=== PATIENT | female | born 1975 | race Caucasian/White ===

== ENCOUNTER → 2017-06-09 | Outpatient (CLI) | payer BC | END | disposition home or self-care (01) | LOC: CFH 10:29 | DX: Z12.31 Encounter for screening mammogram for malignant neoplasm of breast (principal) | CPT/HCPCS: 77063; 77067 ==

== ENCOUNTER → 2017-06-24 | Outpatient (CLI) | payer BC | END | disposition home or self-care (01) | LOC: CFH 14:15 | DX: N60.02 Solitary cyst of left breast (principal) | CPT/HCPCS: 77065 ==

== ENCOUNTER → 2019-07-11 | Outpatient (CLI) | payer OTHER | END | disposition home or self-care (01) | LOC: CFH 15:17 | PROVIDERS: ATTEND Obstetrics & Gynecology | DX: Z12.31 Encounter for screening mammogram for malignant neoplasm of breast (principal) | CPT/HCPCS: 77063; 77067 ==

== ENCOUNTER → 2019-11-21 | Outpatient (CLI) | payer OTHER ==
[2019-11-21 14:20] LABS: BASOPHILS # (AUTO) 0.01 x10^3/uL (0-0.1); BASOPHILS % (AUTO) 0 % (0-1); EOSINOPHILS % (AUTO) 3 % (1-7); LYMPHOCYTES # (AUTO) 2.28 x10^3/uL (1-3.4); LYMPHOCYTES % (AUTO) 31 % (22-44); MD NO; MEAN CORPUSCULAR HEMOGLOBIN 32.2 pg (27.0-34.8); MEAN CORPUSCULAR HGB CONC 33.1 g/dL (32.4-35.8); MEAN CORPUSCULAR VOLUME 97.3 fL (80-100); MEAN PLATELET VOLUME 6.9 fL (7.4-10.4); MONOCYTES # (AUTO) 0.57 x10^3/uL (0.2-0.8); MONOCYTES % (AUTO) 8 % (2-9); NEUTROPHILS # (AUTO) 4.28 x10^3/uL (1.8-6.8); NEUTROPHILS % (AUTO) 58 % (42-75); PLATELET COUNT 282 x10^3/uL (130-400); RED BLOOD COUNT 3.97 x10^6/uL (3.82-5.3); RED CELL DISTRIBUTION WIDTH 12.4 % (9.6-15.2)
[2019-11-21 14:29] LABS: MICROSCOPIC AUTO
[2019-11-21 14:32] LABS: INTERNATIONAL NORMALIZED RATIO 0.93 (0.93-1.1); PROTHROMBIN TIME 9.8 Seconds (9.6-11.5)
[2019-11-21 14:36] LABS: ALANINE AMINOTRANSFERASE 16 U/L (12-78); ALBUMIN 3.9 g/dL (3.4-5.0); ANION GAP 6 mmol/L (5-15); CALCIUM 8.9 mg/dL (8.5-10.1); CHLORIDE 106 mmol/L (98-107); CREATININE 0.72 mg/dL (0.55-1.02)
[2019-11-21 14:38] LABS: ALKALINE PHOSPHATASE 65 U/L (45-117); BILIRUBIN,TOTAL 0.3 mg/dL (0.2-1.0); TOTAL PROTEIN 7.9 g/dL (6.4-8.2)
== END | disposition home or self-care (01) ==
LOC: STAR 13:12
PROVIDERS: ATTEND Orthopaedic Surgery Orthopaedic Surgery of the Spine
DX: Z01.818 Encounter for other preprocedural examination (principal); M54.2 Cervicalgia
CPT/HCPCS: 36415; 71046; 80053; 81001; 85025; 85610; 85730; 93005

== ENCOUNTER 2019-11-29 05:26 | Observation (INO) | payer OTHER ==
[~2019-11-29] VITALS: Ht 157.5 cm; Wt 71.0 kg
[2019-11-29] MEDS ORDERED: LACTATED RINGERS 1,000 ML IV SCH (05:51)
[2019-11-29] MEDS ORDERED: CHLORHEXIDINE 15 ML UDC MM ONE (06:00)
[2019-11-29 06:06] VITALS: BP 113/82
[2019-11-29 06:27] LABS: HCG UR SG 1.024 (1.003-1.030)
[2019-11-29] MEDS ORDERED: VANCOMYCIN 1,000 MG ONE (06:42)
[2019-11-29] MEDS ORDERED: LIDOCAINE/PF 0.5% ,50ML ONE (06:42)
[2019-11-29] MEDS ORDERED: EPINEPHRINE 1 MG/ML, 1ML ONE (06:42)
[2019-11-29] MEDS ORDERED: BUPIVACAINE/PF-EPI 0.25% 1:200K ONE (06:42)
[2019-11-29] MEDS ORDERED: MAGNESIUM SULFATE 1 GM/2 ML ONE (07:04)
[2019-11-29] MEDS ORDERED: LIDOCAINE 1%, 20ML ONE (07:04)
[2019-11-29] MEDS ORDERED: LABETALOL 5MG/ML, 20ML ONE (07:04)
[2019-11-29] MEDS ORDERED: ROCURONIUM 10MG/ML,5ML ONE (07:07)
[2019-11-29] MEDS ORDERED: DEXAMETHASONE 4 MG/ML, 1ML ONE (07:07)
[2019-11-29] MEDS ORDERED: PROPOFOL 10 MG/ML, 20ML ONE (07:07)
[2019-11-29] MEDS ORDERED: GLYCOPYRROLATE 0.2MG/1ML, 5ML ONE (07:07)
[2019-11-29] MEDS ORDERED: LIDOCAINE-MPF 2% ,5ML ONE (07:07)
[2019-11-29] MEDS ORDERED: MIDAZOLAM 1 MG/ML, 2ML ONE (07:07)
[2019-11-29] MEDS ORDERED: FENTANYL PF 250 MCG/5ML ONE (07:08)
[2019-11-29] MEDS ORDERED: SCOPOLAMINE 1MG PATCH TD ONE (07:17)
[2019-11-29] MEDS ORDERED: SCOPOLAMINE 1MG PATCH TD SCH (07:30)
[2019-11-29] MEDS ORDERED: CEFAZOLIN 1,000 MG ONE (07:47)
[2019-11-29] MEDS ORDERED: OXYcodone 5 MG/5 ML ORAL.SOL UDC PO PRN (08:00)
[2019-11-29] MEDS ORDERED: ACETAMINOPHEN 325 MG TABLET PO PRN (08:00)
[2019-11-29] MEDS ORDERED: EPHEDRINE 50 MG/ML, 1ML IM PRN (08:00)
[2019-11-29] MEDS ORDERED: EPHEDRINE 50 MG/ML, 1ML IVPush PRN (08:00)
[2019-11-29] MEDS ORDERED: KETOROLAC 30 MG/1 ML IVPush PRN (08:00)
[2019-11-29] MEDS ORDERED: HYDROmorphone 1 MG/ML, 1ML INJ IVPush PRN (08:00)
[2019-11-29] MEDS ORDERED: LABETALOL 5MG/ML, 20ML IV PRN (08:00)
[2019-11-29] MEDS ORDERED: METOCLOPRAMIDE 5 MG/ML, 2ML IVPush PRN (08:00)
[2019-11-29] MEDS ORDERED: LORazepam 2 MG/ML, 1ML IVPush PRN (08:00)
[2019-11-29] MEDS ORDERED: MIDAZOLAM 1 MG/ML, 2ML IV PRN (08:00)
[2019-11-29] MEDS ORDERED: ONDANSETRON 2MG/ML, 2ML IVPush PRN ×2 (08:00→11:30)
[2019-11-29] MEDS ORDERED: DIAZEPAM 5 MG/ML, 2ML IVPush PRN (08:00)
[2019-11-29] MEDS ORDERED: HYDROcodone/APAP 7.5-325MG/15ML UDC PO PRN (08:00)
[2019-11-29] MEDS ORDERED: MEPERIDINE/PF 25MG/0.5ML IVPush PRN (08:00)
[2019-11-29] MEDS ORDERED: METHOCARBAMOL 1,000 MG in DEXTROSE 5% 100 ML IV PRN (08:00)
[2019-11-29] MEDS ORDERED: hydrALAzine 20 MG/ML, 1ML IV PRN (08:00)
[2019-11-29] MEDS ORDERED: HALOPERIDOL 5 MG/ML IV PRN (08:00)
[2019-11-29] MEDS ORDERED: ALBUTEROL/IPRATROPIUM 2.5MG/0.5MG, 3 ML NPPB PRN (08:00)
[2019-11-29] MEDS ORDERED: DIPHENHYDRAMINE 50 MG/ML, 1ML IVPush PRN ×2 (08:00→11:30)
[2019-11-29] MEDS ORDERED: BUPIVACAINE/PF-EPI 0.5% 1:200K INFIL ONE (09:26)
[2019-11-29] MEDS ORDERED: FENTANYL PF 100 MCG/2ML ONE ×2 (09:52→10:11)
[2019-11-29] MEDS: FENTANYL PF 100 MCG/2ML IV PRN ×4 (09:56→10:33)
[2019-11-29] MEDS ORDERED: KETOROLAC 30 MG/1 ML ONE (10:11)
[2019-11-29] MEDS ORDERED: ACETAMINOPHEN 650 MG/20.3 ML UDC ONE (10:17)
[2019-11-29] MEDS ORDERED: OXYcodone 5 MG/5 ML ORAL.SOL UDC ONE (10:17)
[2019-11-29] MEDS ORDERED: HYDROcodone/APAP 10/325 MG TABLET PO PRN ×2 (11:30→14:00)
[2019-11-29] MEDS ORDERED: SENNA/DOCUSATE TABLET PO PRN (11:30)
[2019-11-29] MEDS ORDERED: BISACODYL 10 MG SUPP PR PRN ×2 (11:30→14:00)
[2019-11-29] MEDS ORDERED: PHARMACY MAY ADJ FOR RENAL FX MC PRN (11:30)
[2019-11-29] MEDS ORDERED: PROMETHAZINE 25 MG/ML, 1ML IM PRN ×2 (11:30→14:00)
[2019-11-29] MEDS ORDERED: MAGNESIUM HYDROXIDE 8%, 30ML UDC PO PRN ×2 (11:30→14:00)
[2019-11-29] MEDS ORDERED: DIPHENHYDRAMINE 50 MG/ML, 1ML IM PRN (11:30)
[2019-11-29] MEDS ORDERED: DIPHENHYDRAMINE 50 MG CAPSULE PO PRN (11:30)
[2019-11-29 13:30] VITALS: BP 104/70
[2019-11-29] MEDS ORDERED: HYDROcodone/APAP 5/325 TABLET PO PRN (14:00)
[2019-11-29] MEDS ORDERED: ONDANSETRON 2MG/ML, 2ML IV PRN (14:00)
[2019-11-29] MEDS ORDERED: METHOCARBAMOL 750 MG TABLET PO PRN (14:00)
[2019-11-29] MEDS: HYDROcodone/APAP 5/325 TABLET PO PRN ×3 (14:13→22:26)
[2019-11-29] MEDS ORDERED: SODIUM CHLORIDE 0.9% 1,000ML IV PRN (15:00)
[2019-11-29] MEDS ORDERED: CEFAZOLIN PMX 1GM/50ML 50 ML IVPB SCH (16:00)
[2019-11-29] MEDS: CEFAZOLIN PMX 1GM/50ML 50 ML IVPB SCH (16:15)
[2019-11-29] MEDS: D5%-0.9% NACL+KCL 20MEQ 1,000 ML IV SCH (16:54)
[2019-11-29 19:57] VITALS: BP 102/65
[2019-11-29] MEDS: SENNA/DOCUSATE TABLET PO SCH (20:37)
[2019-11-29] MEDS: SODIUM CHLORIDE FLUSH 10ML SYR IVF SCH (20:38)
[2019-11-29] MEDS ORDERED: METHOCARBAMOL 750 MG TABLET PO SCH (21:00)
[2019-11-29 23:32] VITALS: BP 101/66
[2019-11-30] MEDS: CEFAZOLIN PMX 1GM/50ML 50 ML IVPB SCH (00:02)
[2019-11-30] MEDS: D5%-0.9% NACL+KCL 20MEQ 1,000 ML IV SCH ×3 (01:00→21:00)
[2019-11-30] MEDS: HYDROcodone/APAP 5/325 TABLET PO PRN ×6 (02:37→22:39)
[2019-11-30 03:56] VITALS: BP 102/75
[2019-11-30 05:15] LABS: BASOPHILS # (AUTO) 0.04 x10^3/uL (0-0.1); BASOPHILS % (AUTO) 0 % (0-1); EOSINOPHILS # (AUTO) 0.06 x10^3/uL (0-0.4); EOSINOPHILS % (AUTO) 1 % (1-7); LYMPHOCYTES # (AUTO) 3.09 x10^3/uL (1-3.4); LYMPHOCYTES % (AUTO) 25 % (22-44); MD NO; MEAN CORPUSCULAR HEMOGLOBIN 32.7 pg (27.0-34.8); MEAN CORPUSCULAR HGB CONC 33.4 g/dL (32.4-35.8); MEAN PLATELET VOLUME 7.4 fL (7.4-10.4); MONOCYTES # (AUTO) 0.96 x10^3/uL (0.2-0.8); MONOCYTES % (AUTO) 8 % (2-9); NEUTROPHILS # (AUTO) 8.09 x10^3/uL (1.8-6.8); NEUTROPHILS % (AUTO) 66 % (42-75); PLATELET COUNT 245 x10^3/uL (130-400); RED BLOOD COUNT 3.24 x10^6/uL (3.82-5.3); RED CELL DISTRIBUTION WIDTH 12.3 % (9.6-15.2)
[2019-11-30 05:23] LABS: ANION GAP 6 mmol/L (5-15); CALCIUM 8.2 mg/dL (8.5-10.1); CHLORIDE 110 mmol/L (98-107); CREATININE 0.71 mg/dL (0.55-1.02)
[2019-11-30 06:59] VITALS: BP 107/66
[2019-11-30] MEDS: SENNA/DOCUSATE TABLET PO SCH ×2 (08:54→22:39)
[2019-11-30] MEDS: SODIUM CHLORIDE FLUSH 10ML SYR IVF SCH ×2 (08:55→22:39)
[2019-11-30] MEDS: METHOCARBAMOL 750 MG TABLET PO PRN ×2 (10:37→18:32)
[2019-11-30 12:31] VITALS: BP 119/77
[2019-11-30 20:15] VITALS: BP 109/72
[2019-12-01 01:33] VITALS: BP 111/74
[2019-12-01] MEDS: HYDROcodone/APAP 5/325 TABLET PO PRN ×3 (02:46→11:06)
[2019-12-01 05:59] LABS: BASOPHILS # (AUTO) 0.05 x10^3/uL (0-0.1); BASOPHILS % (AUTO) 1 % (0-1); EOSINOPHILS # (AUTO) 0.34 x10^3/uL (0-0.4); EOSINOPHILS % (AUTO) 4 % (1-7); LYMPHOCYTES # (AUTO) 3.28 x10^3/uL (1-3.4); LYMPHOCYTES % (AUTO) 40 % (22-44); MD NO; MEAN CORPUSCULAR HEMOGLOBIN 32.7 pg (27.0-34.8); MEAN CORPUSCULAR HGB CONC 33.2 g/dL (32.4-35.8); MEAN CORPUSCULAR VOLUME 98.4 fL (80-100); MEAN PLATELET VOLUME 7.4 fL (7.4-10.4); MONOCYTES # (AUTO) 0.66 x10^3/uL (0.2-0.8); MONOCYTES % (AUTO) 8 % (2-9); NEUTROPHILS # (AUTO) 3.89 x10^3/uL (1.8-6.8); NEUTROPHILS % (AUTO) 47 % (42-75); PLATELET COUNT 269 x10^3/uL (130-400); RED BLOOD COUNT 3.36 x10^6/uL (3.82-5.3); RED CELL DISTRIBUTION WIDTH 12.1 % (9.6-15.2)
[2019-12-01 06:07] LABS: ANION GAP 5 mmol/L (5-15); CALCIUM 8.4 mg/dL (8.5-10.1); CHLORIDE 108 mmol/L (98-107); CREATININE 0.65 mg/dL (0.55-1.02)
[2019-12-01] MEDS: D5%-0.9% NACL+KCL 20MEQ 1,000 ML IV SCH ×2 (06:12→07:17)
[2019-12-01 07:40] VITALS: BP 113/75
[2019-12-01] MEDS: SENNA/DOCUSATE TABLET PO SCH (08:43)
[2019-12-01] MEDS: SODIUM CHLORIDE FLUSH 10ML SYR IVF SCH (08:44)
[2019-12-01] MEDS ORDERED: METH750T87 PO (11:39)
[2019-12-01] MEDS ORDERED: HYDR-3246 PO (11:39)
[2019-12-01 13:06] VITALS: BP 107/73
== END 2019-12-01 14:49 | disposition home or self-care (01) ==
LOC: ORIP 05:26 → INTOOBSV 05:26 → ORIP 09:20 → 4NE 13:25 → DCLOUNGE 12-01 14:40
PROVIDERS: ADMIT Orthopaedic Surgery Orthopaedic Surgery of the Spine; ATTEND Orthopaedic Surgery Orthopaedic Surgery of the Spine
DX: Z03.818 Encounter for observation for suspected exposure to other biological agents ruled out (principal); M96.89 Other intraoperative and postprocedural complications and disorders of the musculoskeletal system; R13.10 Dysphagia, unspecified; Y83.8 Other surgical procedures as the cause of abnormal reaction of the patient, or of later complication, without mention of misadventure at the time of the procedure
CPT/HCPCS: 20680; 36415; 72040; 80048; 81025; 85025; 87635; 95938; 95941; 96365; 96366; G0378; J0171; J0690; J1100; J1885; J2001; J2250; J2704; J2800; J3010; J3370; J3475; J3480; J3490; J7120

== ENCOUNTER → 2020-09-03 | Outpatient (CLI) | payer OTHER ==
[~2020-09-03] MED LIST: HYDR-3248 PO; METH750T87 PO
== END | disposition home or self-care (01) ==
LOC: CFH 12:37
PROVIDERS: ATTEND Obstetrics & Gynecology
DX: Z12.31 Encounter for screening mammogram for malignant neoplasm of breast (principal)
CPT/HCPCS: 77063; 77067

== ENCOUNTER 2020-11-15 20:47 | Emergency (ER) | payer OTHER ==
[~2020-11-15] VITALS: Ht 160 cm; Wt 65.7 kg
[2020-11-15] MEDS ORDERED: FLUORESCEIN OPHTHALMIC 1 MG STRIP ONE (21:37)
[2020-11-15] MEDS ORDERED: PROPARACAINE OPHTH 0.5%, 15ML ONE (21:37)
--- NOTE | 2020-11-15 21:41 | NUR ---
PT CAME INTO ED TONIGHT DUE TO A DIAGNOSIS OF SHINGLES WITH RASH ON THE NECK AREA. PT RECEIVED MEDICATION FOR THIS PREVIOUS BUT WAS INFORMED IF SPREAD TO THE FACE TO COME IN. YESTERDAY BEGAN SPREADING TO FACE AND THEN ITCHING/BURNING PAIN STARTED UP IN LEFT EYE. PLACED ON SPO2/BP MONITORING. Patient is resting comfortably in bed. Bed in lowest, rails engaged, call light on lap. Vital Signs within normal limits. SO AT BS. WCTM. ZURI VORA AT BS.
[2020-11-15] MEDS ORDERED: HYDROcodone/APAP 5/325 TABLET PO ONE (22:00)
[2020-11-15] MEDS ORDERED: HYDROcodone/APAP 5/325 TABLET ONE (22:11)
--- NOTE | 2020-11-15 22:14 | NUR ---
pt medicated per mar for pain, nad, appears comfortable resting on gurney, vss, no change in condition, wctm.
[2020-11-15 22:15] VITALS: BP 129/73
--- NOTE | 2020-11-15 22:35 | NUR ---
Patient given discharge instructions and they have confirmed that they understand the instructions. Patient ambulatory with steady gait. NAD, all questions answered appropriately, denies additional needs at this time. No personal belongings left in room after discharge.
== END 2020-11-15 22:36 | disposition home or self-care (01) ==
LOC: ED 22:21
DX: B02.9 Zoster without complications (principal); Z87.891 Personal history of nicotine dependence
CPT/HCPCS: 99283